=== PATIENT | male | born 1955 | race Hispanic/Latino ===

== ENCOUNTER 2023-07-30 12:54 | Day surgery (SDC) | payer MEDICARE ==
[2023-07-30] VITALS (11 sets, daily range): BP systolic 136–192; BP diastolic 66–85; PULSE 65–72; RESP 13–19
[~2023-07-30] VITALS: Ht 162.6 cm; Wt 83.0 kg
[~2023-07-30 12:54] MED LIST: ATOR-2 PO; CARV12.511 PO; FERS325 PO; FOLIC ACID PO; INSU100V12 SQ; LOSA50TA64 PO; METF-446 PO; PANT40TA54 PO; SUCR1TAB2 PO; TRAM50TA4 PO
[2023-07-30] MEDS ORDERED: PROPOFOL 10 MG/ML 20ML VIAL IV ONE (14:31)
[2023-07-30] MEDS ORDERED: LIDOCAINE HCL 1% 20 ML VIAL ONE (14:33)
== END 2023-07-30 16:15 | disposition home or self-care (01) ==
LOC: ENDO 12:54
PROVIDERS: ATTEND Internal Medicine Gastroenterology
DX: Z09 Encounter for follow-up examination after completed treatment for conditions other than malignant neoplasm (principal); D12.0 Benign neoplasm of cecum; D12.3 Benign neoplasm of transverse colon; K21.9 Gastro-esophageal reflux disease without esophagitis; K26.0 Acute duodenal ulcer with hemorrhage; K59.04 Chronic idiopathic constipation; I25.10 Atherosclerotic heart disease of native coronary artery without angina pectoris; I11.0 Hypertensive heart disease with heart failure; I50.9 Heart failure, unspecified; E11.9 Type 2 diabetes mellitus without complications; E78.5 Hyperlipidemia, unspecified; Z79.899 Other long term (current) drug therapy; Z79.01 Long term (current) use of anticoagulants; Z86.73 Personal history of transient ischemic attack (TIA), and cerebral infarction without residual deficits; Z98.890 Other specified postprocedural states; Z86.16 Personal history of COVID-19; Z90.49 Acquired absence of other specified parts of digestive tract
CPT/HCPCS: 82948 ×2; 45380; 45385; J2704; A4620; A4215 ×2; A4223; A7002; A4222; A4221; A4663; J7030; A4606; J3490